=== PATIENT | male | born 1970 | race Caucasian/White ===

== ENCOUNTER 2017-12-28 13:39 | Emergency (ER) | payer BC, SELFPAY ==
[2017-12-28 13:45] VITALS: BP 135/71; PULSE 63; RESP 19; TEMP 36.8; O2SAT 99; BMI 28.5
--- NOTE | 2017-12-28 14:55 | ED_ITS ---
HPI - Chest Pain General Chief Complaint: Chest Pain Stated Complaint: HEART IS A LITTLE OFF, SOB Time Seen by Provider: 12/28/17 14:54 Source: patient Mode of arrival: ambulatory Limitations: no limitations History of Present Illness HPI narrative: Otherwise healthy 47-year-old male here for evaluation of palpitations. Patient states that he has felt these palpitations off and on for many months if not a year. He denies any chest pain. Denies any shortness of breath. States that he runs 4-5 miles a day and has never had the symptoms while he is running. Denies any dizziness. He states that today he has just noticed them more often in became concerned about them. He does state that he noticed the more at night. He states that he did drink alcohol last night and does use ?a significant amount ?of caffeine during the day. Denies any smoking. No family history of early cardiac disease or sudden . Related Data Allergies Allergy/AdvReac Type Severity Reaction Status Date / Time No Known Drug Allergies Allergy Verified 12/28/17 13:55 Review of Systems Constitutional Denies fatigue, Denies fever(s), Denies lethargy and Denies malaise ENT Ears, Nose, Mouth, and Throat: Denies vertigo Cardiovascular Denies chest pain, Denies diaphoresis, Denies syncope, Reports irregular heart rhythm, Denies lightheadedness, Reports palpitations and Denies dyspnea Respiratory Denies cough and Denies dyspnea Gastrointestinal Gastrointestinal: Denies constipation, Denies diarrhea, Denies nausea and Denies vomiting Genitourinary Denies dysuria Integumentary/Breasts Denies lesions and Denies rash Neurologic Denies confusion, Denies vertigo and Denies syncope Psychiatric Denies confusion Endocrine Denies fatigue and Reports palpitations Hematologic/Lymphatic Denies easy bleeding and Denies easy bruising [facility] Medical History Hypothyroid (Acute) Social History Smoking Status: Former smoker Exam Initial Vital Signs Initial Vital Signs: Vital Signs Temperature 98.2 F 12/28/17 13:45 Pulse Rate 63 12/28/17 13:45 Respiratory Rate 19 12/28/17 13:45 Blood Pressure 135/71 H 12/28/17 13:45 Pulse Oximetry 99 12/28/17 13:45 Const General: cooperative, healthy appearing, comfortable, well developed and well groomed Nutritional Appearance: well nourished Orientation: alert, awake, oriented x3 and not confused HENMI Head: normal to inspection and normocephalic Resp Effort & Inspection: normal respiratory effort Auscultation: clear to auscultation bilaterally Cardio Palpation: normal PMI Rate: regular rate Pulses: radial pulses present Skin General: no rashes or lesions noted Lesions: no lesions Rashes: no rashes Neuro General: alert, awake and oriented x3 Extrem General: normal to inspection and full ROM Course Vital Signs - 8 hr 12/28/17 13:45 12/28/17 15:32 Temperature 98.2 F Pulse Rate 63 72 Respiratory Rate 19 12 Blood Pressure 135/71 H Blood Pressure [Left Arm] 119/53 L Pulse Oximetry 99 99 MDM - Chest Pain ECG Data Attestation: I personally reviewed and interpreted this ECG as follows: Prior ECG tracings: not available for review Interpretation: Sinus rhythm Ventricular rate is 63 One PVC Normal axis Normal QRS No ST T wave changes MDM Narrative Medical decision making narrative: Patient with a PVC on his EKG hand was also having PVCs on the monitor. This did correspond with his symptoms. He denied any other symptoms such as chest pain or shortness of breath or dizziness. He also stated that this never happened while he was exercising. We did discuss PVCs and the concerning things regarding them and also there benign nature. He was given return precautions. He was instructed he needed to follow up with his primary doctor if he wanted to discuss medications to help control the symptoms. Patient expressed understanding and agreement with plan Discharge Plan Departure Patient Disposition: Home, Self-Care Clinical Impression: Heart palpitations, Premature ventricular contraction Discharge Date/Time: 12/28/17 15:38 Interventions: ED Discharge Assessment Last Done: 12/28/17 15:38 Instructions: Premature Ventricular Beats Activity Restrictions/Additional Instructions: Recommend that you contact your primary doctor when you return home to discuss the indications for consultation to Cardiology or for medication. Return to the emergency department if you have any symptoms that are associated with chest pain, lightheadedness, or if they ever her while you are exercising.
[2017-12-28 15:32] VITALS: BP 119/53; PULSE 72; RESP 12; O2SAT 99
== END 2017-12-28 15:38 | disposition home or self-care (01) ==
PROVIDERS: Emergency Provider Emergency Medicine
DX: I49.3 Ventricular premature depolarization (principal); R00.2 Palpitations
CPT/HCPCS: 93005; 99282; 99283

== ENCOUNTER → 2020-12-26 15:12 | Outpatient (CLI) | payer BC, SELFPAY ==
--- NOTE | 2020-12-26 15:19 | DI.RAD.S_ITS ---
PROCEDURE: XR CHEST 2V INDICATIONS: COUGH TECHNIQUE: 2 views of the chest were acquired. COMPARISON: None. FINDINGS: Surgical changes and devices: None. Lungs and pleura: Lungs are clear. No pleural effusions or pneumothorax. Mediastinum: Mediastinal contours are normal. Heart size is normal. Bones and chest wall: No suspicious bony abnormalities. Soft tissues appear unremarkable. IMPRESSION: No acute cardiopulmonary disease process. Dictated by: Ale Gonzalez MD, PhD on 12/26/2020 at 15:41 Approved by: Ale Gonzalez MD, PhD on 12/26/2020 at 15:42
== END ==
PROVIDERS: Referring Provider Physician Assistant; Visit Provider Physician Assistant
DX: R05 Cough (principal)
CPT/HCPCS: 71046